=== PATIENT | male | born 1975 ===

== ENCOUNTER 2025-08-09 14:39 | Emergency (ER) | payer OTHER, SELFPAY ==
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
--- NOTE | ~2025-08-09 | XR_ITS ---
EXAMINATION: XR KNEE, LEFT CLINICAL INFORMATION: pain, injury COMPARISON: None available. TECHNIQUE: Four views of the left knee. FINDINGS: There is no joint effusion. There is small enthesophyte at the quadriceps attachment on patella. Intercondylar tubercles are mildly peaked. There is subtle medial compartment joint space narrowing. XR/XR knee LT 3V IMPRESSION: Minimal degenerative change. Electronically signed by: Frank Dumont MD 08/09/2025 03:26 PM EST RP
--- NOTE | ~2025-08-09 | XR_ITS ---
EXAMINATION: XR HIP, LEFT CLINICAL INFORMATION: pain, injury COMPARISON: None available. TECHNIQUE: AP pelvis, AP supine and frog-leg lateral views of the left hip. FINDINGS: Mild degenerative changes are present in the hip joints with small marginal sites involving acetabular roofs. There is mild narrowing of the SI joints, left greater than right with mild subchondral sclerosis. Pubic symphysis joint is unremarkable. Left hip joint is congruent without narrowing. XR/XR hip LT w PEL1V IMPRESSION: Mild degenerative changes in the hips and SI joints. Electronically signed by: Frank Dumont MD 08/09/2025 03:25 PM EST
--- NOTE | ~2025-08-09 | XR_ITS ---
EXAMINATION: XR HAND, RIGHT CLINICAL INFORMATION: pain, injury COMPARISON: None available. TECHNIQUE: PA, lateral, and oblique views of the right hand. FINDINGS: No acute fracture is identified. No degenerative changes are seen. There is no joint diastases. XR/XR hand RT min 3V IMPRESSION: Unremarkable right hand. Electronically signed by: Frank Dumont MD 08/09/2025 03:21 PM EST
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
--- NOTE | ~2025-08-09 | XR_ITS ---
EXAMINATION: XR WRIST, RIGHT CLINICAL INFORMATION: pain, injury COMPARISON: None available. TECHNIQUE: PA, lateral, oblique, and scaphoid views of the right wrist. FINDINGS: The bones and soft tissues are normal. No fracture. Alignment is anatomic with normal joint spaces. No erosions or abnormal soft tissue calcifications. XR/XR wrist RT min 3V IMPRESSION: Unremarkable right wrist. Electronically signed by: Frank Dumont MD 08/09/2025 03:27 PM OLIVIA
[2025-08-09 14:50] VITALS: BP 136/69; PULSE 82; RESP 16; TEMP 36.4; O2SAT 99; BMI 26.0
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
[2025-08-09 17:49] VITALS: BP 136/69; PULSE 82; RESP 16; TEMP 36.4; O2SAT 99
== END 2025-08-09 17:49 | disposition home or self-care (01) ==
PROVIDERS: Emergency Provider Emergency Medicine
DX: M54.2 Cervicalgia (principal); S00.93XA Contusion of unspecified part of head, initial encounter; M79.641 Pain in right hand; V43.52XA Car driver injured in collision with other type car in traffic accident, initial encounter; Y93.89 Activity, other specified; Y92.488 Other paved roadways as the place of occurrence of the external cause; Y99.8 Other external cause status
CPT/HCPCS: 70450; 72125; 73110; 73130; 73502; 73562; 99283; 99284

== ENCOUNTER → 2025-08-09 14:52 | Outpatient (BNV) | payer OTHER, SELFPAY | PROVIDERS: Visit Provider Radiology Diagnostic Radiology | DX: M54.2 Cervicalgia (principal); S09.90XA Unspecified injury of head, initial encounter; V89.2XXA Person injured in unspecified motor-vehicle accident, traffic, initial encounter; M25.552 Pain in left hip; M16.12 Unilateral primary osteoarthritis, left hip; M25.562 Pain in left knee; M17.12 Unilateral primary osteoarthritis, left knee; S69.91XA Unspecified injury of right wrist, hand and finger(s), initial encounter | CPT/HCPCS: 70450; 72125; 73110; 73130; 73502; 73562 ==